=== PATIENT | female | born 1950 | race Caucasian/White ===

== ENCOUNTER 2022-02-02 11:52 | Emergency (ER) | payer MEDICARE, BC ==
[~2022-02-02] VITALS: Ht 162.6 cm; Wt 54.4 kg
[2022-02-02] MEDS ORDERED: IV NORMAL SALINE 1000 ML BAG IV ONE (12:30)
[2022-02-02 13:25] LABS: HEMATOCRIT 39.3 % (31.2-41.9); MEAN CORPUSCULAR HEMOGLOBIN 30.4 uug (24.7-32.8); MEAN CORPUSCULAR VOLUME 93.8 fL (75.5-95.3); PLATELET COUNT (AUTO) 240 K/uL (179-408)
[2022-02-02 13:44] LABS: CARBON DIOXIDE 27 mmol/L (21-32); CHLORIDE 96 mmol/L (98-107); CREATININE 0.5 mg/dL (0.6-1.3); GLUCOSE 81 mg/dL (74-106); POTASSIUM 3.6 mmol/L (3.5-5.1); UREA NITROGEN, BLOOD 13 mg/dL (7-18)
[2022-02-02 13:53] LABS: ALANINE AMINOTRANSFERASE 33 U/L (14-59); ALKALINE PHOSPHATASE 58 U/L (50-136); ASPARTATE AMINOTRANSFERASE 26 U/L (15-37); BILIRUBIN,DIRECT 0.2 mg/dL (0.0-0.2); TOTAL PROTEIN, SERUM 6.5 g/dL (6.4-8.2)
--- NOTE | 2022-02-02 15:42 | NUR ---
Pt arrived [facility] with c/o syncope. Pt has a hx of syncopal episodes. V/S WNL. Denies n/v, headache, sob. Breathing even and unlabored. Seen by ERIN for MSE.
--- NOTE | 2022-02-02 15:44 | NUR ---
Pt discharged to home in stable condition. Written and verbal after care instructions given. Pt verbalizes understanding of instructions. Stressed follow up or return to ER for worsening s/s.
[2022-02-02 15:45] VITALS: BP 120/64
== END 2022-02-02 15:30 | disposition home or self-care (01) ==
LOC: ER 11:52
DX: R55 Syncope and collapse (principal); R94.31 Abnormal electrocardiogram [ECG] [EKG]; M79.7 Fibromyalgia
CPT/HCPCS: 36415; 71045; 83735; 84484; 85025; 93005; A4663; J7040